=== PATIENT | female | born 1975 ===

== ENCOUNTER 2021-03-24 12:02 | Emergency (ER) | payer SELFPAY ==
[2021-03-24 12:59] VITALS: BP 156/100
--- NOTE | 2021-03-24 13:12 | Emergency Department Report ---
Chief Complaint: Upper Respiratory Infection Stated Complaint: covid pos; dizzy p putting peroxide in ears- anxiety Time Seen by Provider: 03/24/21 13:00 - HPI History of Present Illness: pt has covid tested pos 5 days ago She cleaned her ears this am and got dizzy- she had put fluid in them. This created anxiety and she was sob So she comes to ER She drove to ER On arrival her symptoms were gone - ROS Review of Systems: On exam patient has no complaints. No symptoms. Her symptoms had resolved. Patient drove herself to the ER. - Exam Vital Signs: Vital Signs 03/24/21 12:54 Temperature 98.9 F Pulse Rate 77 Respiratory 16 Rate Blood Pressure 156/100 O2 Sat by Pulse 98 Oximetry Physical Exam: Alert and oriented x4. No focal deficit. S1-S2. Lungs clear to auscultation. Abdomen soft nontender. No CVA tenderness. Pharynx normal no redness. TMs without redness. MSE screening note: Focused history and physical exam performed. Due to findings the following was ordered: Patient reassured. She has normal vital signs. Her oxygen sat is 100%. She has no symptoms on exam. We've discussed outpatient management of her Covid symptoms. Patient MSE from triage. ED Disposition for MSE Condition: Stable
== END 2021-03-24 23:41 | disposition home or self-care (01) ==
LOC: ED 12:02
DX: U07.1 COVID-19 (principal); F41.9 Anxiety disorder, unspecified
CPT/HCPCS: 99281